=== PATIENT | male | born 1975 | race Caucasian/White ===

== ENCOUNTER 2024-07-21 15:31 | Emergency (ER) | payer BC ==
[~2024-07-21] VITALS: Ht 177.8 cm; Wt 126.0 kg
[2024-07-21 15:50] LABS: BASOPHILS # (AUTO) 0.1 X10'3 (0-0.2); BASOPHILS % (AUTO) 0.8 % (0-1); EOSINOPHILS % (AUTO) 0.1 % (0-6); HEMATOCRIT 43.2 % (42.0-52.0); HEMOGLOBIN 14.4 g/dl (14.0-17.9); LYMPHOCYTES % (AUTO) 14.2 % (21-51); MEAN CORPUSCULAR HEMOGLOBIN 27.9 PG (27.0-31.0); MEAN CORPUSCULAR HGB CONC 33.3 g/dL (33.0-36.5); MEAN CORPUSCULAR VOLUME 83.8 FL (78-98); MEAN PLATELET VOLUME 7.3 FL (7.4-10.4); MONOCYTES # (AUTO) 0.4 X10'3 (0-0.9); MONOCYTES % (AUTO) 5.7 % (2-12); NEUTROPHILS # (AUTO) 5.7 X10'3 (1.8-7.7); NEUTROPHILS % (AUTO) 79.2 % (42-75); PLATELET COUNT 177 X10'3 (140-440); RED BLOOD COUNT 5.16 X10'6 (4.70-6.10); RED CELL DISTRIBUTION WIDTH 15.8 % (11.5-14.5); WHITE BLOOD COUNT 7.2 X10'3 (4.5-11.0)
[2024-07-21 16:07] LABS: ALANINE AMINOTRANSFERASE 31 U/L (12-78); ALBUMIN 3.7 G/DL (3.4-5.0); ALBUMIN/GLOBULIN RATIO 0.7 (1.1-1.5); ALKALINE PHOSPHATASE 156 IU/L (46-116); ANION GAP 12 (8-16); ASPARTATE AMINO TRANSFERASE 59 U/L (10-37); BILIRUBIN,TOTAL 0.6 MG/DL (0.1-1.0); BLOOD UREA NITROGEN 16 MG/DL (7-18); BUN/CREATININE RATIO 12.9 (10.0-20.0); CALCIUM 9.5 MG/DL (8.5-10.1); CHLORIDE 97 MMOL/L (99-107); CREATININE 1.24 MG/DL (0.60-1.10); POTASSIUM 3.6 MMOL/L (3.5-5.1); SODIUM 136 MMOL/L (135-145); TOTAL CARBON DIOXIDE 27.2 MMOL/L (24-32); TOTAL PROTEIN 9.1 G/DL (6.4-8.2); eCRCL 76 ML/MIN; eGFR 62 ML/MIN
[2024-07-21 16:14] LABS: PRO BRAIN NATRIURETIC PEPTIDE 142 PG/ML (0-125)
[2024-07-21 16:21] LABS: GLUCOSE 426 MG/DL (70-104)
[2024-07-21] MEDS ORDERED: iohexol 350MG/ML 100ml bottle IV ONE (18:24)
[2024-07-21] MEDS: morphine 4 MG/ML inj SYRINge IV ONE (20:20)
[2024-07-21] MEDS: ondansetron/PF 4mg/2ml inj IV ONE (20:23)
[2024-07-21] MEDS: normal saline 1000ML IV soln IVB ONE (20:45)
[2024-07-21] MEDS: insulin regular, human 10 units/0.1 ml syringe IV ONE ×2 (20:47→23:33)
[2024-07-21 20:48] VITALS: TEMP 97.8
[2024-07-21] MEDS: POTASSIUM BICARB 20meq eff tab 20 MEQ TABLET.EFF PO ONE (22:29)
[2024-07-21] MEDS: POTASSIUM CHLORIDE 20 MEQ/15 ML oral solution PO ONE (22:31)
[2024-07-21] MEDS: famotidine/PF 10 mg/ml inj IV ONE (22:32)
[2024-07-21] MEDS: pantoprazole 40 MG vial IV ONE (22:32)
[2024-07-21] MEDS: mag hydrox/Alum hydrox/simeth 30ml oral suspension PO ONE (22:32)
[2024-07-21] MEDS: LIDOcaine 2% Viscous 15ml cup MM ONE (22:32)
[2024-07-21] MEDS: ketorolac trometh 15mg/ml vial 15 MG/ML ML IV ONE (23:31)
[2024-07-21] MEDS ORDERED: FAMO-129 PO (23:34)
[2024-07-21 23:45] VITALS: BP 152/93; PULSE 101; RESP 16; O2SAT 98
== END 2024-07-21 23:48 | disposition home or self-care (01) ==
LOC: ER 15:33
DX: R07.89 Other chest pain (principal); E11.65 Type 2 diabetes mellitus with hyperglycemia; I10 Essential (primary) hypertension; Z88.8 Allergy status to other drugs, medicaments and biological substances
CPT/HCPCS: 36415; 71045; 71275; 80053; 82948; 83880; 84484; 85025; 93005; 93971; 96361; 96365; 96375; 96376; 99285; J1815; J1885; J2270; J2405; J2470; J3490; J7030; Q9967